=== PATIENT | male | born 1935 | race Caucasian/White ===

== ENCOUNTER 2019-01-22 09:02 | Emergency (ER) | payer OTHER, MEDICARE ==
[~2019-01-22] VITALS: Ht 172.7 cm; Wt 68.2 kg
[2019-01-22] MEDS ORDERED: STATIN MED PO (09:05)
[2019-01-22] MEDS ORDERED: HTN MED PO (09:05)
[2019-01-22] MEDS ORDERED: OxyCODONE HCL 5 MG IR TABLET PO ONE (09:30)
[2019-01-22 09:47] VITALS: BP 171/80
== END 2019-01-22 10:15 | disposition home or self-care (01) ==
LOC: EMS 09:07
DX: S61.411A Laceration without foreign body of right hand, initial encounter (principal); S61.412A Laceration without foreign body of left hand, initial encounter; W20.8XXA Other cause of strike by thrown, projected or falling object, initial encounter; Y93.89 Activity, other specified; Y92.89 Other specified places as the place of occurrence of the external cause; Y99.8 Other external cause status